=== PATIENT | male | born 1960 | race Two or more races ===

== ENCOUNTER 2024-12-29 19:43 | Inpatient (IN) | payer OTHER ==
[~2024-12-29] VITALS: Ht 154.9 cm; Wt 112.4 kg
[2024-12-29] MEDS ORDERED: 0.9% SODIUM CHLORIDE 10 ML SYRINGE IVP PRN (20:15)
[2024-12-29 20:46] LABS: PLATELET COUNT (AUTO) 477 K/uL (150-450); RED BLOOD CELL COUNT(AUTO) 3.53 MIL/uL (4.50-5.90); RED CELL DISTRIBUTION WIDTH 14.9 % (11.5-14.5); WHITE BLOOD COUNT (AUTO) 21.5 K/uL (4.5-11.0)
[2024-12-29 20:54] LABS: CALCIUM, TOTAL 7.9 mg/dL (8.8-10.5); CREATININE 2.09 mg/dL (0.60-1.30); GLOMERULAR FILTR. RATE CALC 32 mL/min (>60); GLUCOSE,RANDOM 146 mg/dL (70-110); SODIUM SERUM 138 mmol/L (136-145); UREA NITROGEN, BLOOD 26 mg/dL (7-18)
[2024-12-29] MEDS ORDERED: CefTRIAXone 1 GM/DEXTROSE 50 ML IV ONE (21:00)
[2024-12-29] MEDS: AZITHROMYCIN 500 MG/NS 250 ML IV ONE (21:00)
[2024-12-29 21:03] LABS: LACTIC ACID 1.0 mmol/L (0.4-2.0)
[2024-12-29 21:04] LABS: TROPONIN I-HIGH SENSITIVITY 12 ng/L (<76)
[2024-12-29 21:12] LABS: COVID AG,FIA SOURCE NASAL SWAB
[2024-12-29] MEDS ORDERED: MAGNESIUM HYDROXIDE SUSPENSION 30 ML UDCUP PO PRN (21:30)
[2024-12-29] MEDS ORDERED: BISACODYL 10 MG RECTAL RECTAL SUPPOSITORY PR PRN (21:30)
[2024-12-29] MEDS ORDERED: ZOLPIDEM TARTRATE 5 MG TABLET PO PRN (21:30)
[2024-12-29 21:31] LABS: INFLUENZA TYPE A NEGATIVE FOR TYPE A (NEGATIVE); INFLUENZA TYPE B NEGATIVE FOR TYPE B (NEGATIVE); SARS-COV2 (COVID) ANTIGEN,FIA Negative (Negative)
[2024-12-29] MEDS: PIPERACILLIN/TAZO 3.375 GM/D5W 50 ML IV SCH (22:15)
[2024-12-29] MEDS ORDERED: FERR-82 PO (22:47)
[2024-12-29] MEDS ORDERED: GLIP2.5T17 PO (22:47)
[2024-12-29] MEDS ORDERED: ASPI81TA87 PO (22:47)
[2024-12-29] MEDS ORDERED: ATOR-2 PO (22:47)
[2024-12-29] MEDS ORDERED: NEBI5TAB12 PO (22:47)
[2024-12-29] MEDS ORDERED: LOSA-382 PO (22:47)
[2024-12-29] MEDS ORDERED: ESCI5SOL2 PO (22:47)
[2024-12-29] MEDS: SODIUM CHLORIDE 0.9% 2,900 ML IV ONE (22:58)
[2024-12-29] MEDS: ASPIRIN 325 MG TABLET PO ONE (22:59)
[2024-12-30] MEDS: IPRATROPIUM BROMIDE 0.5 MG/2.5 ML NEB SOLUTION NEB ONE (02:11)
[2024-12-30] MEDS: ALBUTEROL SULFATE 2.5 MG/0.5 ML NEB SOLUTION NEB ONE (02:11)
[2024-12-30] MEDS: BENZONATATE 100 MG CAPSULE PO ONE (02:16)
[2024-12-30] MEDS: HEPARIN SODIUM,PORCINE 5,000 UNITS/ML VIAL SQ SCH (02:16)
[2024-12-30] MEDS ORDERED: 0.9% SODIUM CHLORIDE 15 ML NEB SOLUTION NEB ONE (02:50)
[2024-12-30] MEDS: IPRATROPIUM BROMIDE 0.5 MG/2.5 ML NEB SOLUTION NEB PRN (02:53)
[2024-12-30] MEDS: ALBUTEROL SULFATE 2.5 MG/0.5 ML 5 ML NEB SOLUTION NEB ONE (02:53)
[2024-12-30] MEDS: PANTOPRAZOLE SODIUM 40 MG DR TABLET PO SCH (08:29)
[2024-12-30 11:06] VITALS: BP 131/62; PULSE 88; RESP 18; TEMP 98.2; O2SAT 97
[2024-12-30 12:00] VITALS: BP 138/78; PULSE 77; RESP 18; TEMP 98.3; O2SAT 96
[2024-12-30] MEDS ORDERED: DEXTROSE 50%-WATER 25 GM/50 ML SYRINGE IVP PRN ×2 (14:15→21:00)
[2024-12-30 16:00] VITALS: BP 157/97; PULSE 67; RESP 18; TEMP 98.2; O2SAT 98
[2024-12-30] MEDS: INSULIN LISPRO 100 UNITS/ML SQ PRN ×2 (17:23→21:31)
[2024-12-30 18:21] LABS: GLUCOMETER DEV NAME(LOC) 5S.2D; GLUCOSE,POINT OF CARE 503 MG/DL (70-110)
[2024-12-30 19:41] VITALS: BP 134/59; PULSE 81; RESP 19; TEMP 98.1; O2SAT 99
[2024-12-31] MEDS: MORPHINE SULFATE 4 MG/ML SYRINGE IVP PRN (00:29)
[2024-12-31 00:31] VITALS: BP 147/64; PULSE 87; RESP 18; TEMP 98.1; O2SAT 97
[2024-12-31 03:57] VITALS: BP 121/65; PULSE 77; RESP 18; TEMP 97.3; O2SAT 98
[2024-12-31] MEDS: GlipiZIDE ER 2.5 MG ER TABLET PO SCH (06:03)
[2024-12-31] MEDS: LOSARTAN POTASSIUM 50 MG TABLET PO SCH (07:51)
[2024-12-31] MEDS: ESCITALOPRAM OXALATE 20 MG TABLET PO SCH (07:52)
[2024-12-31] MEDS: FERROUS SULFATE 325 MG EC TABLET PO SCH (07:52)
[2024-12-31] MEDS: ASPIRIN 81 MG DR TABLET PO SCH (07:52)
[2024-12-31] MEDS: ATORVASTATIN CALCIUM 40 MG TABLET PO SCH (07:53)
[2024-12-31] MEDS: NEBIVOLOL HCL 5 MG TABLET PO SCH (07:53)
[2024-12-31 08:00] VITALS: BP 120/59; PULSE 75; RESP 16; TEMP 98.2; O2SAT 98
[2024-12-31] MEDS ORDERED: [UNRECOGNIZED DRUG - OTHER] PO SCH (09:00)
[2024-12-31 10:25] LABS: GLUCOMETER DEV NAME(LOC) 5S.2D; GLUCOSE,POINT OF CARE 172 MG/DL (70-110)
[2024-12-31 10:25] LABS: GLUCOMETER DEV NAME(LOC) 5S.2D; GLUCOSE,POINT OF CARE 482 MG/DL (70-110)
[2024-12-31 12:06] VITALS: BP 123/65; PULSE 67; RESP 16; TEMP 98.1; O2SAT 97
[2024-12-31 12:21] LABS: GLUCOMETER DEV NAME(LOC) 5S.2D; GLUCOSE,POINT OF CARE 187 MG/DL (70-110)
[2024-12-31 13:53] LABS: PLATELET COUNT (AUTO) 423 K/uL (150-450); RED BLOOD CELL COUNT(AUTO) 3.08 MIL/uL (4.50-5.90); RED CELL DISTRIBUTION WIDTH 15.3 % (11.5-14.5)
[2024-12-31 14:01] LABS: WHITE BLOOD COUNT (AUTO) 31.6 K/uL (4.5-11.0)
[2024-12-31 14:03] LABS: BAND NEUTROPHILS % (MANUAL) 0 % (0-5); SODIUM SERUM 142.0 mmol/L (136-145)
[2024-12-31 14:04] LABS: CALCIUM, TOTAL 7.7 mg/dL (8.8-10.5); CREATININE 2.52 mg/dL (0.60-1.30); GLOMERULAR FILTR. RATE CALC 26.0 mL/min (>60); GLUCOSE,RANDOM 162.0 mg/dL (70-110); UREA NITROGEN, BLOOD 43.0 mg/dL (7-18)
[2024-12-31 14:08] LABS: ASPARTATE AMINOTRANSFERASE 18.0 U/L (15-37); TOTAL PROTEIN, SERUM 5.8 g/dL (6.4-8.2)
[2024-12-31 14:12] LABS: LYMPHOCYTES % (MANUAL) 6 % (22-44); MONOCYTES % (MANUAL) 4 % (2-9); SEGMENTED NEUTROPHILS % 90 % (40-70)
[2024-12-31] MEDS ORDERED: SODIUM CHLORIDE 0.45% 1,000 ML IV SCH (14:15)
[2024-12-31] MEDS ORDERED: ESCI20TA87 PO (14:20)
[2024-12-31 17:45] LABS: GLUCOMETER DEV NAME(LOC) 5N.2C; GLUCOSE,POINT OF CARE 122 MG/DL (70-110)
[2024-12-31 18:07] VITALS: BP 114/62; PULSE 71; RESP 17; TEMP 98; O2SAT 96
[2024-12-31 19:50] VITALS: BP 111/55; PULSE 69; RESP 18; TEMP 98; O2SAT 96
[2024-12-31] MEDS ORDERED: SODIUM CHLORIDE 0.9% 250 ML IV ONE (20:29)
[2024-12-31 20:56] LABS: GLUCOMETER DEV NAME(LOC) 4E.2; GLUCOSE,POINT OF CARE 108 MG/DL (70-110)
[2025-01-01 00:37] LABS: APPEARANCE,URINE CLEAR (CLEAR); GLUCOSE, URINE (UA) TRACE mg/dL (NEGATIVE); LEUKOCYTE ESTERASE ,URINE NEGATIVE (NEGATIVE); NITRATE,URINE NEGATIVE (NEGATIVE); OCCULT BLOOD,URINE TRACE (NEGATIVE); SPECIFIC GRAVITIY, URINE 1.024 (1.003-1.030)
[2025-01-01 00:44] LABS: CREATININE,URINE RANDOM 114.8 mg/dL (30.0-125.0); PROTEIN,URINE RANDOM 370.0 mg/dL (0-11.9)
[2025-01-01 01:05] LABS: SQUAMOUS EPITHELIAL CELL,UR Rare /LPF (None Seen); SULFOSALICYLIC ACID,URINE 4+ (Negative)
[2025-01-01 03:59] VITALS: BP 118/59; PULSE 68; RESP 18; TEMP 98; O2SAT 95
[2025-01-01 07:30] LABS: CALCIUM, TOTAL 8.0 mg/dL (8.8-10.5); CREATININE 2.67 mg/dL (0.60-1.30); GLOMERULAR FILTR. RATE CALC 24.0 mL/min (>60); GLUCOSE,RANDOM 122.0 mg/dL (70-110); SODIUM SERUM 145.0 mmol/L (136-145); UREA NITROGEN, BLOOD 46.0 mg/dL (7-18)
[2025-01-01 07:39] LABS: % IRON SATURATION 8.4 % (30-44); IRON, SERUM 19.0 mcg/dL (50-175)
[2025-01-01 07:42] LABS: PHOSPHORUS 4.6 mg/dL (2.5-4.9)
[2025-01-01 08:16] LABS: PLATELET COUNT (AUTO) 460 K/uL (150-450); RED BLOOD CELL COUNT(AUTO) 3.21 MIL/uL (4.50-5.90); RED CELL DISTRIBUTION WIDTH 15.5 % (11.5-14.5); WHITE BLOOD COUNT (AUTO) 26.6 K/uL (4.5-11.0)
[2025-01-01 08:51] LABS: GLUCOMETER DEV NAME(LOC) 6S.2; GLUCOSE,POINT OF CARE 124 MG/DL (70-110)
[2025-01-01 09:13] VITALS: BP 125/58; PULSE 67; PULSE 69; RESP 18; RESP 20; TEMP 98.2; O2SAT 100; O2SAT 96
[2025-01-01] MEDS: ALBUTEROL SULFATE 2.5 MG/0.5 ML NEB SOLUTION NEB PRN (09:14)
[2025-01-01 09:25] VITALS: PULSE 68; RESP 20; O2SAT 100
[2025-01-01 13:51] LABS: GLUCOMETER DEV NAME(LOC) 4E.2; GLUCOSE,POINT OF CARE 128 MG/DL (70-110)
[2025-01-01 19:25] LABS: GLUCOMETER DEV NAME(LOC) 6S.2; GLUCOSE,POINT OF CARE 136 MG/DL (70-110)
[2025-01-01 20:00] VITALS: BP 136/62; PULSE 69; RESP 18; TEMP 98.4; O2SAT 18; O2SAT 96
[2025-01-01 21:35] VITALS: PULSE 75; RESP 16; O2SAT 97
[2025-01-01 21:50] VITALS: PULSE 65; RESP 16; O2SAT 99
[2025-01-02] VITALS (8 sets, daily range): BP systolic 130–183; BP diastolic 60–84; PULSE 68–76; RESP 18–20; TEMP 97.9–98.4; O2SAT 96–100
[2025-01-02 05:35] LABS: GLUCOMETER DEV NAME(LOC) 6S.2; GLUCOSE,POINT OF CARE 141 MG/DL (70-110)
[2025-01-02 06:30] LABS: CALCIUM, TOTAL 7.9 mg/dL (8.8-10.5); CREATININE 2.33 mg/dL (0.60-1.30); GLOMERULAR FILTR. RATE CALC 28.0 mL/min (>60); GLUCOSE,RANDOM 155.0 mg/dL (70-110); SODIUM SERUM 144.0 mmol/L (136-145); UREA NITROGEN, BLOOD 38.0 mg/dL (7-18)
[2025-01-02 07:30] LABS: GLUCOMETER DEV NAME(LOC) 4E.2; GLUCOSE,POINT OF CARE 129 MG/DL (70-110)
[2025-01-02 11:09] LABS: PLATELET COUNT (AUTO) 438 K/uL (150-450); RED BLOOD CELL COUNT(AUTO) 3.30 MIL/uL (4.50-5.90); RED CELL DISTRIBUTION WIDTH 15.0 % (11.5-14.5); WHITE BLOOD COUNT (AUTO) 15.6 K/uL (4.5-11.0)
[2025-01-02] MEDS: LOPERAMIDE HCL 2 MG CAPSULE PO ONE (13:34)
[2025-01-02 14:07] LABS: ALBUMIN/CREATININE RATIO 1705 mg/g creat (0-29); CREATININE, URINE (mALB) 106.6 mg/dL (Not Estab.)
[2025-01-02] MEDS: BUMETANIDE 0.25 MG/ML 4 ML VIAL IVP SCH (20:17)
[2025-01-02] MEDS: LOPERAMIDE HCL 2 MG CAPSULE PO PRN (20:18)
[2025-01-02 21:16] LABS: GLUCOMETER DEV NAME(LOC) 4E.2; GLUCOSE,POINT OF CARE 148 MG/DL (70-110)
[2025-01-02 21:16] LABS: GLUCOMETER DEV NAME(LOC) 4E.2; GLUCOSE,POINT OF CARE 207 MG/DL (70-110)
[2025-01-03 04:00] VITALS: BP 153/67; PULSE 64; RESP 20; TEMP 98.1; O2SAT 95
[2025-01-03 06:44] LABS: CALCIUM, TOTAL 7.8 mg/dL (8.8-10.5); CREATININE 2.23 mg/dL (0.60-1.30); GLOMERULAR FILTR. RATE CALC 30.0 mL/min (>60); GLUCOSE,RANDOM 107.0 mg/dL (70-110); SODIUM SERUM 142.0 mmol/L (136-145); UREA NITROGEN, BLOOD 30.0 mg/dL (7-18)
[2025-01-03 06:48] LABS: PHOSPHORUS 4.8 mg/dL (2.5-4.9)
[2025-01-03 08:30] VITALS: BP 114/47; PULSE 65; RESP 19; TEMP 97.9; O2SAT 98
[2025-01-03 16:00] VITALS: PULSE 64; RESP 18; O2SAT 96
[2025-01-03 16:15] VITALS: PULSE 62; RESP 18; O2SAT 99
[2025-01-03 20:00] VITALS: BP 137/53; PULSE 72; RESP 20; TEMP 98.1; O2SAT 95
[2025-01-03] MEDS ORDERED: SODIUM CHLORIDE 0.9% 250 ML IV ONE (20:47)
[2025-01-03] MEDS: PIPERACILLIN SODIUM/TAZOBACTAM 2.25 GM in DEXTROSE 5%-WATER 50 ML IV SCH (20:54)
[2025-01-04 03:30] LABS: GLUCOMETER DEV NAME(LOC) 4E.2; GLUCOSE,POINT OF CARE 117 MG/DL (70-110)
[2025-01-04 03:31] LABS: GLUCOMETER DEV NAME(LOC) 4E.2; GLUCOSE,POINT OF CARE 230 MG/DL (70-110)
[2025-01-04 03:31] LABS: GLUCOMETER DEV NAME(LOC) 4E.2; GLUCOSE,POINT OF CARE 188 MG/DL (70-110)
[2025-01-04 04:00] VITALS: BP 148/56; PULSE 65; RESP 18; TEMP 97.7; O2SAT 97
[2025-01-04 06:16] LABS: GLUCOMETER DEV NAME(LOC) 6S.2; GLUCOSE,POINT OF CARE 135 MG/DL (70-110)
[2025-01-04 07:19] LABS: CALCIUM, TOTAL 8.1 mg/dL (8.8-10.5); CREATININE 2.19 mg/dL (0.60-1.30); GLOMERULAR FILTR. RATE CALC 30.0 mL/min (>60); GLUCOSE,RANDOM 137.0 mg/dL (70-110); SODIUM SERUM 142.0 mmol/L (136-145); UREA NITROGEN, BLOOD 30.0 mg/dL (7-18)
[2025-01-04 07:33] LABS: PLATELET COUNT (AUTO) 408 K/uL (150-450); RED BLOOD CELL COUNT(AUTO) 3.44 MIL/uL (4.50-5.90); RED CELL DISTRIBUTION WIDTH 14.8 % (11.5-14.5); WHITE BLOOD COUNT (AUTO) 17.9 K/uL (4.5-11.0)
[2025-01-04 07:52] LABS: ASPARTATE AMINOTRANSFERASE 23.0 U/L (15-37); TOTAL PROTEIN, SERUM 6.8 g/dL (6.4-8.2)
[2025-01-04 08:21] VITALS: BP 111/46; PULSE 63; RESP 18; TEMP 97.7; O2SAT 97
[2025-01-04] MEDS: DOXYCYCLINE HYCLATE 100 MG in DEXTROSE 5%-WATER 100 ML IV SCH (11:01)
[2025-01-04 11:25] LABS: GLUCOMETER DEV NAME(LOC) 6S.2; GLUCOSE,POINT OF CARE 222 MG/DL (70-110)
[2025-01-04 16:07] LABS: ATYPICAL P-ANCA AB <1:20 titer (Neg:<1:20); CYTOPLASMIC (C-ANCA) AB, IGG <1:20 titer (Neg:<1:20)
[2025-01-04 16:58] VITALS: PULSE 70; RESP 18; O2SAT 97
[2025-01-04 20:02] VITALS: BP 113/54; PULSE 65; RESP 18; TEMP 98.4; O2SAT 100
[2025-01-04 21:36] LABS: GLUCOMETER DEV NAME(LOC) 6S.2; GLUCOSE,POINT OF CARE 207 MG/DL (70-110)
[2025-01-04 21:36] LABS: GLUCOMETER DEV NAME(LOC) 6S.2; GLUCOSE,POINT OF CARE 120 MG/DL (70-110)
[2025-01-05] VITALS (7 sets, daily range): BP systolic 124–150; BP diastolic 60–71; PULSE 64–77; RESP 18–20; TEMP 97.7–100; O2SAT 90–100
[2025-01-05 06:54] LABS: CALCIUM, TOTAL 7.9 mg/dL (8.8-10.5); CREATININE 2.69 mg/dL (0.60-1.30); GLOMERULAR FILTR. RATE CALC 24.0 mL/min (>60); GLUCOSE,RANDOM 198.0 mg/dL (70-110); SODIUM SERUM 142.0 mmol/L (136-145); UREA NITROGEN, BLOOD 39.0 mg/dL (7-18)
[2025-01-05 07:39] LABS: PLATELET COUNT (AUTO) 420 K/uL (150-450); RED BLOOD CELL COUNT(AUTO) 3.41 MIL/uL (4.50-5.90); RED CELL DISTRIBUTION WIDTH 14.8 % (11.5-14.5); WHITE BLOOD COUNT (AUTO) 19.0 K/uL (4.5-11.0)
[2025-01-05 14:41] LABS: GLUCOMETER DEV NAME(LOC) 6N.2C; GLUCOSE,POINT OF CARE 167 MG/DL (70-110)
[2025-01-05] MEDS: SOD FERRIC GLUC COMPLX/SUCROSE 125 MG in SODIUM CHLORIDE 0.9% 100 ML IV SCH (15:12)
[2025-01-05 17:06] LABS: GLUCOMETER DEV NAME(LOC) 6S.2; GLUCOSE,POINT OF CARE 189 MG/DL (70-110)
[2025-01-05 17:30] LABS: GLUCOMETER DEV NAME(LOC) 6N.2C; GLUCOSE,POINT OF CARE 105 MG/DL (70-110)
[2025-01-05] MEDS: ONDANSETRON HCL 4 MG/2 ML VIAL IVP PRN (17:42)
[2025-01-05] MEDS ORDERED: SODIUM CHLORIDE 0.9% 250 ML IV ONE (20:23)
[2025-01-06 04:13] VITALS: BP 127/54; PULSE 70; RESP 18; TEMP 98.8; O2SAT 95
[2025-01-06 07:17] LABS: CALCIUM, TOTAL 7.5 mg/dL (8.8-10.5); CREATININE 2.75 mg/dL (0.60-1.30); GLOMERULAR FILTR. RATE CALC 23.0 mL/min (>60); GLUCOSE,RANDOM 156.0 mg/dL (70-110); SODIUM SERUM 143.0 mmol/L (136-145); UREA NITROGEN, BLOOD 39.0 mg/dL (7-18)
[2025-01-06 07:56] LABS: GLUCOMETER DEV NAME(LOC) 6N.1C; GLUCOSE,POINT OF CARE 202 MG/DL (70-110)
[2025-01-06 07:56] LABS: GLUCOMETER DEV NAME(LOC) 6N.2C; GLUCOSE,POINT OF CARE 147 MG/DL (70-110)
[2025-01-06 08:33] VITALS: BP 100/50; PULSE 73; RESP 18; TEMP 98.2; O2SAT 100
[2025-01-06 12:44] LABS: PLATELET COUNT (AUTO) 377 K/uL (150-450); RED BLOOD CELL COUNT(AUTO) 3.16 MIL/uL (4.50-5.90); RED CELL DISTRIBUTION WIDTH 15.4 % (11.5-14.5); WHITE BLOOD COUNT (AUTO) 14.5 K/uL (4.5-11.0)
[2025-01-06] MEDS: ALBUMIN HUMAN 25%-25GM/100ML 100 ML IV SCH (16:32)
[2025-01-06 17:30] LABS: GLUCOMETER DEV NAME(LOC) 6N.2C; GLUCOSE,POINT OF CARE 146 MG/DL (70-110)
[2025-01-06 20:13] VITALS: PULSE 73; RESP 18; TEMP 98.6; O2SAT 96
[2025-01-06 21:00] VITALS: BP 145/53; PULSE 76; RESP 20; O2SAT 96
[2025-01-06 21:10] VITALS: PULSE 77; RESP 20; O2SAT 96
[2025-01-06 21:26] VITALS: PULSE 74; RESP 20; O2SAT 100
[2025-01-07] VITALS (7 sets, daily range): BP systolic 147–159; BP diastolic 60–63; PULSE 73–86; RESP 18–20; TEMP 98.1–98.8; O2SAT 95–99
[2025-01-07 00:26] LABS: GLUCOMETER DEV NAME(LOC) 6N.1C; GLUCOSE,POINT OF CARE 164 MG/DL (70-110)
[2025-01-07 00:51] LABS: GLUCOMETER DEV NAME(LOC) 6N.2C; GLUCOSE,POINT OF CARE 124 MG/DL (70-110)
[2025-01-07 07:27] LABS: PLATELET COUNT (AUTO) 301 K/uL (150-450); RED BLOOD CELL COUNT(AUTO) 2.52 MIL/uL (4.50-5.90); RED CELL DISTRIBUTION WIDTH 15.2 % (11.5-14.5); WHITE BLOOD COUNT (AUTO) 11.2 K/uL (4.5-11.0)
[2025-01-07 07:36] LABS: GLUCOMETER DEV NAME(LOC) 6N.2C; GLUCOSE,POINT OF CARE 107 MG/DL (70-110)
[2025-01-07 07:41] LABS: CALCIUM, TOTAL 7.5 mg/dL (8.8-10.5); CREATININE 2.54 mg/dL (0.60-1.30); GLOMERULAR FILTR. RATE CALC 26.0 mL/min (>60); GLUCOSE,RANDOM 101.0 mg/dL (70-110); PHOSPHORUS 3.4 mg/dL (2.5-4.9); SODIUM SERUM 144.0 mmol/L (136-145); UREA NITROGEN, BLOOD 35.0 mg/dL (7-18)
[2025-01-07 12:20] LABS: GLUCOMETER DEV NAME(LOC) 6N.2C; GLUCOSE,POINT OF CARE 209 MG/DL (70-110)
[2025-01-07 19:41] LABS: GLUCOMETER DEV NAME(LOC) 6N.2C; GLUCOSE,POINT OF CARE 73 MG/DL (70-110)
[2025-01-07] MEDS ORDERED: SODIUM CHLORIDE 0.9% 500 ML IV ONE (22:13)
[2025-01-08 02:11] LABS: GLUCOMETER DEV NAME(LOC) 6N.2C; GLUCOSE,POINT OF CARE 195 MG/DL (70-110)
[2025-01-08 05:50] VITALS: PULSE 80; RESP 18; O2SAT 98
[2025-01-08 05:59] VITALS: BP 150/78; PULSE 73; RESP 19; TEMP 98.1; O2SAT 95
[2025-01-08 07:10] LABS: PLATELET COUNT (AUTO) 273 K/uL (150-450); RED BLOOD CELL COUNT(AUTO) 2.66 MIL/uL (4.50-5.90); RED CELL DISTRIBUTION WIDTH 15.4 % (11.5-14.5); WHITE BLOOD COUNT (AUTO) 12.8 K/uL (4.5-11.0)
[2025-01-08 07:17] LABS: CALCIUM, TOTAL 8.1 mg/dL (8.8-10.5); CREATININE 2.64 mg/dL (0.60-1.30); GLOMERULAR FILTR. RATE CALC 24.0 mL/min (>60); GLUCOSE,RANDOM 100.0 mg/dL (70-110); SODIUM SERUM 146.0 mmol/L (136-145); UREA NITROGEN, BLOOD 31.0 mg/dL (7-18)
[2025-01-08 07:20] LABS: PHOSPHORUS 3.1 mg/dL (2.5-4.9)
[2025-01-08] MEDS: MORPHINE SULFATE 4 MG/ML SYRINGE IVP PRN (08:04)
[2025-01-08 08:20] VITALS: BP 136/92; PULSE 80; RESP 20; TEMP 97.9; O2SAT 96
[2025-01-08 12:10] LABS: GLUCOMETER DEV NAME(LOC) 6N.2C; GLUCOSE,POINT OF CARE 201 MG/DL (70-110)
[2025-01-08 15:00] VITALS: PULSE 82; RESP 18; O2SAT 98
[2025-01-08 15:14] VITALS: PULSE 72; RESP 18; O2SAT 100
[2025-01-08 17:56] LABS: GLUCOMETER DEV NAME(LOC) 6N.2C; GLUCOSE,POINT OF CARE 155 MG/DL (70-110)
[2025-01-08 20:01] LABS: GLUCOMETER DEV NAME(LOC) 6N.1C; GLUCOSE,POINT OF CARE 110 MG/DL (70-110)
[2025-01-08 20:36] LABS: GLUCOMETER DEV NAME(LOC) 6N.1C; GLUCOSE,POINT OF CARE 228 MG/DL (70-110)
[2025-01-09] VITALS (9 sets, daily range): BP systolic 133–149; BP diastolic 57–65; PULSE 69–86; RESP 18–24; TEMP 98.8–100.4; O2SAT 94–100
[2025-01-09 06:40] LABS: CALCIUM, TOTAL 8.0 mg/dL (8.8-10.5); CREATININE 2.71 mg/dL (0.60-1.30); GLOMERULAR FILTR. RATE CALC 24.0 mL/min (>60); GLUCOSE,RANDOM 153.0 mg/dL (70-110); SODIUM SERUM 143.0 mmol/L (136-145); UREA NITROGEN, BLOOD 33.0 mg/dL (7-18)
[2025-01-09 06:51] LABS: PLATELET COUNT (AUTO) 270 K/uL (150-450); RED BLOOD CELL COUNT(AUTO) 2.60 MIL/uL (4.50-5.90); RED CELL DISTRIBUTION WIDTH 15.7 % (11.5-14.5); WHITE BLOOD COUNT (AUTO) 17.3 K/uL (4.5-11.0)
[2025-01-09 23:36] LABS: GLUCOMETER DEV NAME(LOC) 6N.1C; GLUCOSE,POINT OF CARE 326 MG/DL (70-110)
[2025-01-09 23:36] LABS: GLUCOMETER DEV NAME(LOC) 6N.1C; GLUCOSE,POINT OF CARE 218 MG/DL (70-110)
[2025-01-09 23:36] LABS: GLUCOMETER DEV NAME(LOC) 6N.1C; GLUCOSE,POINT OF CARE 174 MG/DL (70-110)
[2025-01-10] VITALS (20 sets, daily range): BP systolic 122–165; BP diastolic 48–88; PULSE 75–84; RESP 17–20; TEMP 98–100; O2SAT 97–100
[2025-01-10] MEDS ORDERED: SODIUM CHLORIDE 0.9% 500 ML IV ONE ×2 (01:05→21:24)
[2025-01-10 07:19] LABS: ASPARTATE AMINOTRANSFERASE 28.0 U/L (15-37); CALCIUM, TOTAL 8.2 mg/dL (8.8-10.5); CREATININE 3.08 mg/dL (0.60-1.30); GLOMERULAR FILTR. RATE CALC 20.0 mL/min (>60); GLUCOSE,RANDOM 158.0 mg/dL (70-110); PHOSPHORUS 3.4 mg/dL (2.5-4.9); PLATELET COUNT (AUTO) 262 K/uL (150-450); RED BLOOD CELL COUNT(AUTO) 2.45 MIL/uL (4.50-5.90); RED CELL DISTRIBUTION WIDTH 16.0 % (11.5-14.5); SODIUM SERUM 140.0 mmol/L (136-145); TOTAL PROTEIN, SERUM 7.1 g/dL (6.4-8.2); UREA NITROGEN, BLOOD 43.0 mg/dL (7-18); WHITE BLOOD COUNT (AUTO) 16.6 K/uL (4.5-11.0)
[2025-01-10 12:35] LABS: GLUCOMETER DEV NAME(LOC) 6N.2C; GLUCOSE,POINT OF CARE 235 MG/DL (70-110)
[2025-01-10 12:35] LABS: GLUCOMETER DEV NAME(LOC) 6N.2C; GLUCOSE,POINT OF CARE 223 MG/DL (70-110)
[2025-01-10 18:51] LABS: GLUCOMETER DEV NAME(LOC) 6N.2C; GLUCOSE,POINT OF CARE 231 MG/DL (70-110)
[2025-01-10 22:45] LABS: GLUCOMETER DEV NAME(LOC) 6N.2C; GLUCOSE,POINT OF CARE 238 MG/DL (70-110)
[2025-01-11] VITALS (8 sets, daily range): BP systolic 143–159; BP diastolic 73–98; PULSE 70–88; RESP 16–19; TEMP 98.2–98.6; O2SAT 18–99
[2025-01-11 06:10] LABS: GLUCOMETER DEV NAME(LOC) 6N.2C; GLUCOSE,POINT OF CARE 187 MG/DL (70-110)
[2025-01-11 06:44] LABS: PLATELET COUNT (AUTO) 257 K/uL (150-450); RED BLOOD CELL COUNT(AUTO) 2.63 MIL/uL (4.50-5.90); RED CELL DISTRIBUTION WIDTH 15.6 % (11.5-14.5); WHITE BLOOD COUNT (AUTO) 15.8 K/uL (4.5-11.0)
[2025-01-11 06:53] LABS: CALCIUM, TOTAL 8.0 mg/dL (8.8-10.5); CREATININE 2.86 mg/dL (0.60-1.30); GLOMERULAR FILTR. RATE CALC 22.0 mL/min (>60); GLUCOSE,RANDOM 170.0 mg/dL (70-110); SODIUM SERUM 142.0 mmol/L (136-145); UREA NITROGEN, BLOOD 42.0 mg/dL (7-18)
[2025-01-11 06:56] LABS: PHOSPHORUS 3.7 mg/dL (2.5-4.9)
[2025-01-11] MEDS: EPOETIN ALFA 10,000 UNITS/ML VIAL SQ SCH (13:46)
[2025-01-11] MEDS ORDERED: PANT-31 PO (15:44)
[2025-01-11] MEDS ORDERED: LOPE-232 PO (15:45)
[2025-01-11] MEDS ORDERED: DOXY-354 PO (15:46)
[2025-01-11] MEDS ORDERED: IPRA4AER IH (15:47)
[2025-01-11] MEDS ORDERED: ALBU18HF12 IH (15:47)
[2025-01-11 20:55] LABS: GLUCOMETER DEV NAME(LOC) 6N.1C; GLUCOSE,POINT OF CARE 198 MG/DL (70-110)
== END 2025-01-11 23:10 | DRG 871 ==
LOC: EMS 19:43 → EDH 22:41 → 5S 12-30 10:57 → 6S 12-31 18:59
PROVIDERS: ADMIT Hospitalist; ATTEND Hospitalist
PROC: 05HC33Z Insertion of Infusion Device into Left Basilic Vein, Percutaneous Approach (ICD-10-PCS; 2025-01-07)
PROC: 30233N1 Transfusion of Nonautologous Red Blood Cells into Peripheral Vein, Percutaneous Approach (ICD-10-PCS; principal; 2025-01-10)
DX: A41.9 Sepsis, unspecified organism (principal); E43 Unspecified severe protein-calorie malnutrition; J18.9 Pneumonia, unspecified organism; J44.0 Chronic obstructive pulmonary disease with (acute) lower respiratory infection; N17.9 Acute kidney failure, unspecified; I13.0 Hypertensive heart and chronic kidney disease with heart failure and stage 1 through stage 4 chronic kidney disease, or unspecified chronic kidney disease; I50.30 Unspecified diastolic (congestive) heart failure; Z68.42 Body mass index [BMI] 45.0-49.9, adult; D63.8 Anemia in other chronic diseases classified elsewhere; E11.22 Type 2 diabetes mellitus with diabetic chronic kidney disease; E66.01 Morbid (severe) obesity due to excess calories; E78.00 Pure hypercholesterolemia, unspecified; Z20.822 Contact with and (suspected) exposure to COVID-19; N18.32 Chronic kidney disease, stage 3b; E11.51 Type 2 diabetes mellitus with diabetic peripheral angiopathy without gangrene; F41.9 Anxiety disorder, unspecified; Z88.6 Allergy status to analgesic agent; Z88.2 Allergy status to sulfonamides; Z88.3 Allergy status to other anti-infective agents; Z88.8 Allergy status to other drugs, medicaments and biological substances; Z79.82 Long term (current) use of aspirin; Z79.899 Other long term (current) drug therapy; Z79.84 Long term (current) use of oral hypoglycemic drugs
CPT/HCPCS: 36569; 71045; 71250; 76770; 76937; 80048; 80053; 81001; 81002; 82043; 82248; 82271; 82570; 82728; 82962; 83516; 83540; 83550; 83605; 83735; 83880; 84100; 84145; 84156; 84166; 84300; 84484; 85014; 85018; 85025; 85610; 86038; 86060; 86256; 86850; 86900; 86901; 86923; 87040; 87804; 93005; 93306; 93970; 94640; 94760; 96361; 96365; 99285; G0238; G0378; J0456; J0885; J1644; J2270; J2405; J2543; J2916; J2919; J3490; J7030; J7040; J7050; J7060; P9016; P9046; 36415-L1; 36415-TC; J7613